=== PATIENT | male | born 1970 | race Caucasian/White ===

== ENCOUNTER 2017-05-19 22:02 | Emergency (ER) | payer OTHER ==
[2017-05-19 23:26] LABS: URINE BILIRUBIN NEGATIVE (NEGATIVE); URINE BLOOD 1+ (NEGATIVE); URINE COLOR Straw (YELLOW); URINE GLUCOSE (UA) NORMAL (Normal); URINE KETONE NEGATIVE (NEGATIVE); URINE LEUKOCYTE ESTERASE NEG Leu/uL (Negative); URINE PROTEIN NEGATIVE (NEGATIVE); URINE UROBILINOGEN NORMAL mg/dL (0.2-1.0); WBC URINE < 1 /hpf (0-5)
[2017-05-19 23:55] LABS: BASO # 0.1 K/uL (0.0-0.2); BASO % 1.2 % (0.0-2.0); EOS # 0.2 K/uL (0.0-0.7); EOS % 2.4 % (0.0-4.0); HEMATOCRIT 42.5 % (35.0-51.0); LYMPH # 1.5 K/uL (1.0-4.3); LYMPH % 20.4 % (20.0-40.0); MEAN CELL VOLUME 81.1 fL (80.0-94.0); MEAN CORPUSCULAR HEMOGLOBIN 27.5 pg (27.0-31.0); MEAN CORPUSCULAR HGB CONC 33.9 g/dL (33.0-37.0); MEAN PLATELET VOLUME 8.7 fL (7.2-11.7); MONO # 0.6 K/uL (0.0-0.8); MONO % 8.2 % (0.0-10.0); RED CELL DISTRIBUTION WIDTH 13.3 % (11.5-14.5); WHITE BLOOD COUNT 7.4 K/uL (4.8-10.8)
[2017-05-20] MEDS ORDERED: Sodium Chloride 0.9% 1,000 ML IV ONE
[2017-05-20 00:08] LABS: ALB/GLOB RATIO 1.7 (1.0-2.1); ALKALINE PHOSPHATASE 79 U/L (38-126); ALT/SGPT 53 U/L (21-72); AST/SGOT 28 U/L (17-59); BILIRUBIN,TOTAL 1.1 mg/dL (0.2-1.3); BLOOD UREA NITROGEN 13 mg/dL (9-20); CALCIUM 8.9 mg/dl (8.6-10.4); CARBON DIOXIDE 29 mmol/L (22-30); CHLORIDE 98 mmol/L (98-107); GFR AFRICAN-AMERICAN > 60; GLUCOSE,RANDOM 82 mg/dL (75-110); POTASSIUM 3.4 mmol/L (3.6-5.2); SODIUM 138 mmol/L (132-148); TOTAL PROTEIN 7.6 g/dL (6.3-8.3)
--- NOTE | 2017-05-20 00:10 | C.PDOC ---
History Of Present Illness <Vin Terrell - Last Filed: 05/20/17 01:04> <Ulisses Paulino - Last Filed: 05/20/17 03:45> 46 year old male presents to the ER with a complaint of LLQ pain for the past week. Patient reports the pain is consistent with his diverticulitis which he has annually at this time of year. Patient notes he has a Hx of left lower back pain from a "herniated disc" which he takes occasional tylenol for. Denies diarrhea, nausea, or vomiting. (Vin Terrell) History Per: Patient History/Exam Limitations: no limitations Onset/Duration Of Symptoms: Days Current Symptoms Are (Timing): Still Present Radiation Of Pain To:: None Quality Of Discomfort: Unable To Describe Associated Symptoms: denies: Fever, Chills, Nausea, Vomiting, Diarrhea Exacerbating Factors: None Alleviating Factors: None Recent travel outside of the [place]: No <Vin Terrell - Last Filed: 05/20/17 01:04> <Ulisses Paulino - Last Filed: 05/20/17 03:45> Time Seen by Provider: 05/19/17 23:52 Chief Complaint (Nursing): Abdominal Pain Past Medical History Reviewed: Historical Data, Nursing Documentation, Vital Signs - Medical History PMH: Back Problems (Herniated Disc), Diverticulitis Surgical History: No Surg Hx Family History: States: Unknown Family Hx - Social History Hx Tobacco Use: No Hx Alcohol Use: Yes Hx Substance Use: No - Immunization History Hx Tetanus Toxoid Vaccination: No Hx Influenza Vaccination: No Hx Pneumococcal Vaccination: No <Vin Terrell - Last Filed: 05/20/17 01:04> Vital Signs: Last Vital Signs Temp 98.2 F 05/20/17 01:41 Pulse 74 05/20/17 01:41 Resp 17 05/20/17 01:41 BP 120/67 05/20/17 01:41 Pulse Ox 97 05/20/17 01:41 Review Of Systems Constitutional: Negative for: Fever, Chills Gastrointestinal: Positive for: Abdominal Pain. Negative for: Nausea, Vomiting Musculoskeletal: Positive for: Back Pain (Chronic) <Vin Terrell - Last Filed: 05/20/17 01:04> Physical Exam - Physical Exam Appears: Non-toxic, No Acute Distress Skin: Normal Color, Warm, Dry Head: Atraumatic, Normacephalic Oral Mucosa: Moist Chest: Symmetrical Cardiovascular: Rhythm Regular Respiratory: Normal Breath Sounds, No Rales, No Rhonchi, No Wheezing Gastrointestinal/Abdominal: Soft, Tenderness (LLQ mild), No Guarding, No Rebound Neurological/Psych: Oriented x3, Normal Speech, Normal Cognition <Vin Terrell - Last Filed: 05/20/17 01:04> ED Course And Treatment - Laboratory Results Result Diagrams: 05/19/17 23:51 05/19/17 23:51 Lab Interpretation: Normal (ua neg.) O2 Sat by Pulse Oximetry: 99 (Room air) Pulse Ox Interpretation: Normal Progress Note: IVF, toradol IV Reevaluation Time: 00:38 Reassessment Condition: Improved <Vin Terrell - Last Filed: 05/20/17 01:04> - Laboratory Results Result Diagrams: 05/19/17 23:51 05/19/17 23:51 Pulse Ox Interpretation: Normal <Ulisses Paulino - Last Filed: 05/20/17 03:45> Medical Decision Making <Vin Terrell - Last Filed: 05/20/17 01:04> <Ulisses Paulino - Last Filed: 05/20/17 03:45> Medical Decision Making: LLQ discomfort for 1 week may be recurrent diverticulitis (Vin Terrell) Disposition - Disposition Disposition Time: 01:00 <Vin Terrell - Last Filed: 05/20/17 01:04> Counseled Patient/Family Regarding: Studies Performed, Diagnosis, Need For Followup, Rx Given <Ulisses Paulino - Last Filed: 05/20/17 03:45> - Disposition Referrals: [facility] [Outside] Health Program Specialist Service [Outside] Condition: FAIR Additional Instructions: Please return if symptoms recur Prescriptions: Ciprofloxacin [Cipro] 1 tab PO BID #14 tab Metronidazole [Flagyl] 500 mg PO TID #21 tablet Instructions: Abdominal Pain (ED), Diverticulosis (ED), Diverticulosis Diet (ED ) Forms: [facility] (Irish) - Clinical Impression Clinical Impression: Abdominal discomfort, Diverticulosis - Scribe Statement The provider has reviewed the documentation as recorded by the Scribe <Vin Terrell - Last Filed: 05/20/17 01:04> <Ulisses Paulino - Last Filed: 05/20/17 03:45> - Scribe Statement Олег Meade All medical record entries made by the Scribe were at my direction and personally dictated by me. I have reviewed the chart and agree that the record accurately reflects my personal performance of the history, physical exam, medical decision making, and the department course for this patient. I have also personally directed, reviewed, and agree with the discharge instructions and disposition. (Vin Terrell) Physician Patient Turnover Patient Signed Over To: Ulisses Paulino Handoff Comments: follow-up CT Abd/Pelvis <Vin Terrell - Last Filed: 05/20/17 01:04>
[2017-05-20] MEDS ORDERED: Iohexol 350mg/ml 100 ML ONE (01:25)
[2017-05-20 01:43] VITALS: O2SAT 97
--- NOTE | 2017-05-20 02:53 | CT ---
EXAM: CT Abdomen and Pelvis With Intravenous Contrast CLINICAL HISTORY: 46 years old, male; Pain; Abdominal pain; Patient HX: 07-15-13 images sent; Additional info: Llq x 1 week, h/o diverticulitis TECHNIQUE: Axial computed tomography images of the abdomen and pelvis with intravenous contrast. All CT scans at this facility use one or more dose reduction techniques, viz.: automated exposure control; ma/kV adjustment per patient size (including targeted exams where dose is matched to indication; i.e. head); or iterative reconstruction technique. 694 images are submitted. Coronal and sagittal reformatted images were created and reviewed. CONTRAST: 100 mL of [id number] administered intravenously. COMPARISON: CT - ABD PELVIS PO IV CONTRAST 2013-07-15 20:13 FINDINGS: Lower thorax: Possible small hiatal hernia. ABDOMEN: Liver: Fatty liver. Gallbladder and bile ducts: Unremarkable. No ductal dilation. Pancreas: Unremarkable. No mass. No ductal dilation. Spleen: Left upper quadrant splenule. Adrenals: Unremarkable. No mass. Kidneys and ureters: Unremarkable. No solid mass. No hydronephrosis. Stomach and bowel: Diverticulosis with trace haziness and nonspecific thickening of the left lower quadrant likely representing early acute diverticulitis. No obstruction. No mucosal thickening. Appendix: Normal appendix. PELVIS: Bladder: Partially distended bladder. Reproductive: Borderline prominence of prostate gland. ABDOMEN and PELVIS: Intraperitoneal space: Unremarkable. No free air. No significant fluid collection. Bones/joints: No acute fracture. No dislocation. Soft tissues: Left more than right inguinal herniation of fat. There is a fat-containing umbilical hernia. Vasculature: Unremarkable. No abdominal aortic aneurysm. Lymph nodes: Unremarkable. No enlarged lymph nodes. IMPRESSION: 1. Diverticulosis with trace haziness and nonspecific thickening of the left lower quadrant likely representing early acute diverticulitis. No diverticular abscess or free intraperitoneal air is noted.
[2017-05-20 03:45] VITALS: BP 144/85; PULSE 70; RESP 20; TEMP 98.3
== END 2017-05-20 03:45 | disposition home or self-care (01) ==
LOC: C.ER 22:02
DX: K57.90 Diverticulosis of intestine, part unspecified, without perforation or abscess without bleeding (principal); R10.32 Left lower quadrant pain
CPT/HCPCS: 74177; 80053; 81001; 83690; 85025; 96361; 96374; 99284; J1885; J7040; Q9967